=== PATIENT | male | born 1955 | race Caucasian/White ===

== ENCOUNTER 2016-05-04 07:05 | Day surgery (SDC) ==
[2016-05-04] MEDS ORDERED: LIDOCAINE 1% 20 ML MDV ID ONE (08:00)
[2016-05-04] MEDS ORDERED: LIDOCAINE 1% 20 ML MDV ONE (08:00)
[2016-05-04] MEDS ORDERED: DIPRIVAN 20 ML VIAL IVP ONE (09:30)
[2016-05-04] MEDS ORDERED: VERSED ONE (09:30)
[2016-05-04] MEDS ORDERED: SUBLIMAZE ONE (09:30)
[2016-05-04 11:35] VITALS: BP 115/65; TEMP 99
--- NOTE | 2016-05-04 14:30 | OP ---
PROCEDURE: COLONOSCOPY TO THE CECUM WITH SNARE POLYPECTOMY, KATTY INK TATTOOING AND CLIP PLACEMENT. ENDOSCOPIST: Howard WILSON M.D. INDICATION: ANEMIA INSTRUMENT: GIFH-190. MEDICATION: PER ANESTHESIA. PROCEDURE: The patient was positioned for colonoscopy. The digital rectal exam was negative. Colonoscope was inserted through the anus and advanced to the cecum. The cecum was identified using ileocecal valve and appendiceal orifice as landmarks. The scope was slowly withdrawn through an adequately prepped colon. There was residual stool throughout the left colon where he had dense diverticular disease. The exam was somewhat tortuous and we had to use counter pressure to get into the cecal pit. At the approximate hepatic flexure, I found a 2.5 cm sessile polyp spanning a fold. We were able to remove this using piecemeal resection and I feel like complete resection was achieved. Katty Ink was applied at the base of this polyp to facilitate relocalization and one clip was used to pull the defect together. No bleeding was noted during or after the procedure. A 1.2 cm broad based pedunculated polyp was removed at 50 cm. This was withdrawn using a snare and the scope reinserted to this area. Clip was placed across this to close the polypectomy site. Small polyps were seen given the length of time it had taken on these polyps - they were not removed at this time. Retroflex exam was otherwise negative. Withdrawal time was 35 minutes, 14 seconds. PLAN: 1. We will need repeat colonoscopy in 6 months to assess piecemeal resection and to complete any further polypectomies. CC: KHADIJAH AREVALO
--- NOTE | 2016-05-25 13:39 | OP ---
PROCEDURE: EGD (ESOPHAGOGASTRODUODENOSCOPY). ENDOSCOPIST: Howard WILSON M.D. INDICATION: ANEMIA INSTRUMENT: GIFH-190. MEDICATION: PER ANESTHESIA. PROCEDURE: The patient was positioned for endoscopy. The oropharynx was sprayed with Cetacaine spray and the endoscope was advanced through the bite block into the esophagus and from there advanced to the duodenum. The duodenum was normal. The pylorus was patent. The antrum was normal. Retroflex exam reveals a hiatal hernia. The esophagus was normal. The patient tolerated the procedure without immediate complication. ASSESSMENT: 1. NEGATIVE ENDOSCOPY WITH EXCEPTION OF HIATAL HERNIA. PLAN: 1. Proceed with colonoscopy as scheduled. cc: JANEE Hanks
== END 2016-05-04 12:15 | disposition home or self-care (01) ==
LOC: SURG 07:05
PROVIDERS: ATTEND Internal Medicine Gastroenterology
DX: D64.9 Anemia, unspecified (principal); D12.3 Benign neoplasm of transverse colon; D12.5 Benign neoplasm of sigmoid colon; K44.9 Diaphragmatic hernia without obstruction or gangrene